=== PATIENT | female | born 1970 | race Caucasian/White ===

== ENCOUNTER 2025-08-28 11:41 | Emergency (ER) | payer OTHER ==
--- NOTE | 2025-08-28 13:52 | RAD REPORT ---
EXAM: Chest Single View HISTORY: 55 years Female CHEST PAIN COMPARISON: No prior exams FINDINGS: LUNGS/PLEURA: The lungs are clear. No pleural effusions or pneumothorax. No pulmonary edema. CARDIAC/MEDIASTINUM: The cardiac silhouette is within normal limits. UPPER ABDOMEN: No significant abnormality. BONES: No acute abnormality. LINES/TUBES/OTHER: N/A IMPRESSION: No evidence of acute cardiopulmonary disease.
[2025-08-28 14:09] LABS: Absolute Lymphocytes (CBC) 2.7 K/uL (0.7-4.9); Hematocrit 44.7 % (36.0-45.0); Hemoglobin 15.6 g/dL (12.0-15.0); MCH 32.6 pg (27.0-35.0); MCHC 34.8 g/dL (32.0-36.0); MCV 93.6 fL (80-100); MPV 7.3 fL (7.6-11.3); Nucleated RBC Absolute Count 0.0 (0-0); Nucleated Red Blood Cells % 0.1 % (0-0); RBC Red Blood Cell Count 4.77 M/uL (3.86-4.86); White Blood Count 8.20 thou/uL (4.3-10.9)
[2025-08-28 15:06] LABS: Anion Gap 10.3 mEq/L (5.0-15.0); BUN Blood Urea Nitrogen 13.0 mg/dL (7-18); Glucose Level 107.0 mg/dL (74-106); Potassium 3.3 mEq/L (3.5-5.1)
[2025-08-28 15:14] LABS: Troponin High Sensitivity 8287.7 pg/mL (<58.9)
[2025-08-28] MEDS ORDERED: ASPIRIN 81 MG CHEWABLE TABLET ONE (15:23)
[2025-08-28] MEDS ORDERED: HEPARIN 5000 UNIT/ML 1 ML VIAL ONE (15:48)
[2025-08-28] MEDS ORDERED: HEPARIN/D5W 25,000 UNIT/500 ML BAG IV ONE (15:49)
--- NOTE | 2025-08-28 15:55 | ER ---
Nurse's Notes [facility] Name: Nolan Arzate Age: 55 yrs Sex: Female : 1970 Arrival Date: 08/28/2025 Time: 11:41 Bed 2 Private MD: Diagnosis: Subsequent non-ST elevation (NSTEMI) myocardial infarction Presentation: 08/28 13:27 Chief complaint: Patient states: started having chest pain that was like something was me1 squeezing around her chest last night. Had a syncopal episode that lasted about 10 seconds last night. Chest pain has been persistent today. At this time pain is midsternal, dull, radiates to back and bilateral arms. Pain 4/10 now, 7/10 at worst. Coronavirus screen: Vaccine status: Patient reports being unvaccinated. Ebola Screen: No symptoms or risks identified at this time. Initial Sepsis Screen: Does the patient meet any 2 criteria? No. Patient's initial sepsis screen is negative. Does the patient have a suspected source of infection? No. Patient's initial sepsis screen is negative. Risk Assessment: Do you want to hurt yourself or someone else? Patient reports no desire to harm self or others. Onset of symptoms was August 27, 2025 at 16:00. 13:27 Method Of Arrival: Ambulatory hi1 13:27 Acuity: KARI 2 me1 Historical: - Allergies: 13:29 Wellbutrin; me1 - PMHx: 13:29 Hypertensive disorder; Hypercholesterolemia; me1 - PSHx: 13:29 Total abdominal hysterectomy; me1 - Immunization history:: Adult Immunizations up to date. - Infectious Disease History:: Denies. - Social history:: Smoking status: Patient denies any tobacco usage or history of. Screenin:20 [facility] ED Fall Risk Assessment (Adult) History of falling in the last 3 months, aa5 including since admission No falls in past 3 months (0 pts) Confusion or Disorientation No (0 pts) Intoxicated or Sedated No (0 pts) Impaired Gait No (0 pts) Mobility Assist Device Used No (0 pt) Altered Elimination No (0 pt) Score/Fall Risk Level 0 - 2 = Low Risk Oriented to surroundings, Maintained a safe environment, Educated pt \T\ family on fall prevention, incl call for assistance when getting out of bed, Assessed \T\ reinforced patient's understanding of fall precautions. Abuse screen: Denies threats or abuse. Nutritional screening: No deficits noted. Tuberculosis screening: No symptoms or risk factors identified. Assessment: 15:20 Reassessment: KATELYN Urena notified of critical lab value henrik 8287.7. ss 15:20 General: Appears comfortable, Behavior is calm, cooperative. Pain: Complains of pain in aa5 chest Pain radiates to around to back Pain currently is 3 out of 10 on a pain scale. Quality of pain is described as pressure, Pain began 1 day ago. Is continuous. Neuro: Level of Consciousness is awake, alert, obeys commands, Oriented to person, place, time, situation. Cardiovascular: Reports chest pain, syncopal episode yesterday, denies head injury, reports she was sitting down. Heart tones S1 S2 present Rhythm is sinus rhythm. Respiratory: Airway is patent Respiratory effort is even, unlabored, Respiratory pattern is regular, symmetrical. GI: Abdomen is round non-distended, Bowel sounds present X 4 quads. Abd is soft and non tender X 4 quads. Patient currently denies nausea, vomiting. : No signs and/or symptoms were reported regarding the genitourinary system. EENT: No signs and/or symptoms were reported regarding the EENT system. Derm: Skin is pink, warm \T\ dry. Musculoskeletal: Range of motion: intact in all extremities. 15:22 Reassessment: Patient is alert, oriented x 3, equal unlabored respirations, skin aa5 warm/dry/pink. General: Appears uncomfortable, Behavior is crying, Pt reports she is scared, reassured pt verbally, pt's at bedside reassuring pt as well. . 15:22 Reassessment: Provider at bedside speaking to pt and pt's . . aa5 16:00 Reassessment: Patient is alert, oriented x 3, equal unlabored respirations, skin aa5 warm/dry/pink. 16:40 Reassessment: Patient is alert, oriented x 3, equal unlabored respirations, skin aa5 warm/dry/pink. Cardiovascular: Rhythm is sinus rhythm. 17:25 Reassessment: Patient is alert, oriented x 3, equal unlabored respirations, skin aa5 warm/dry/pink. Vital Signs: 13:27 BP 129 / 99; Pulse 78; Resp 18; Temp 98.2; Pulse Ox 100% ; Weight 92.53 kg; Height 5 me1 ft. 3 in. ; Pain 4/10; 15:22 BP 153 / 71; Pulse 73; Resp 19 S; Pulse Ox 100% on R/A; aa5 15:59 BP 125 / 69; Pulse 70; Resp 18 S; Pulse Ox 99% on R/A; aa5 16:40 BP 131 / 79; Pulse 66; Resp 16; Pulse Ox 67% ; ap3 17:05 BP 128 / 72; Pulse 68; Resp 18 S; Pulse Ox 99% on R/A; aa5 13:27 Body Mass Index 36.14 (92.53 kg, 160.02 cm) me1 13:27 Pain Scale: Adult me1 ED Course: 11:44 Patient arrived in ED. al6 11:54 Romel Paz FNP-C [facility]. dr5 11:54 Frida Darling MD is Attending Physician. dr5 13:29 Triage completed. me1 13:29 Arm band placed on Patient placed in waiting room. me1 13:42 XRAY Chest (1 view) In Process Unspecified. EDMS 14:05 EKG done, by certified surgical technician. reviewed by Romel WRIGHT. ts3 14:05 Initial lab(s) drawn, by sleep lab technologist, sent to lab. Inserted saline lock: 20 gauge in left ts3 antecubital area, using aseptic technique. Blood collected. Flushed with 10 mL NS. 14:30 IV discontinued, intact, bleeding controlled, No redness/swelling at site. Pressure bc6 dressing applied, 20 \T\LAC. 14:40 Initial lab(s) drawn, by hi, sent to lab. Inserted saline lock: 20 gauge in right bc6 antecubital area, using aseptic technique. Blood collected. Flushed with 10 mL NS. 15:17 Pattie Piña, RN is Primary Nurse. aa5 15:20 Patient has correct armband on for positive identification. Placed in gown. Bed in low aa5 position. Call light in reach. Side rails up X2. Client placed on continuous cardiac and pulse oximetry monitoring. NIBP monitoring applied. security monitor on. Pulse ox on. NIBP on. 15:30 Inserted saline lock: 20 gauge in left wrist, using aseptic technique. Flushed with 10 aa5 mL NS. 15:51 1551 called [facility] for transfer talked to Ila 1556 Dr. Kelly Alvarado accepted pt 1600 sp Admin approval by Ila Hernandez RN TC to room 2411 report [phone] fax [phone]. pt's came to desk and requested pt be transferred to [facility]. 16:01 No provider procedures requiring assistance completed. Patient maintains SpO2 aa5 saturation greater than 95% on room air. 16:08 1608 called [facility] for transfer talked to Kate Perez RN TC 1618 Dr. Addis Reich accept pt sp 1618 Admin approval Kate SCHRADER to [facility] to the ER DEPT report [phone]. called [facility] for transfer talked to Michelle. 1650 called [facility] to cancel transfer talked to Ila. 17:25 Patient transferred, IV remains in place. aa5 Administered Medications: 15:40 Drug: Aspirin PO Chewable Tablet 324 mg PO once; 81 mg tablets x 4 Route: PO; ss 16:15 Follow up: Response: No adverse reaction aa5 15:55 Drug: Heparin (MS-Bolus No thrombolytic) - HEParin IVP 60 units/kg IVP once; Max 5000 aa5 units {Co-Signature: ap3 (Maine Mir RN).} Route: IVP; Site: right antecubital; 16:15 Follow up: Response: No adverse reaction aa5 15:56 Drug: Heparin (MS Drip) 12 units/kg/[place] - ([place] [address] units, D5W IV 500 ml) IV at aa5 calculated rate Per protocol; Max initial rate 1000 units/hr {Co-Signature: ap3 (Maine Mir RN).} Route: IV; Rate: calculated rate; Site: right antecubital; 17:25 Follow up: IV Status: Infusion continued upon transfer aa5 Medication: 18:19 VIS not applicable for this client. aa5 Outcome: 15:54 ER care complete, transfer ordered by MD. dr5 17:25 Transferred by ground EMS Transfer form completed. X-rays sent w/ patient. Note: [facility] aa5 [facility], report given to Valerie nurse at [facility]. Report given to [facility]. 17:25 Condition: stable 17:25 Instructed on the need for transfer, Demonstrated understanding of instructions, 17:27 Patient left the ED. aa5 Signatures: Dispatcher [employer] EDMS Ondina Mejia Audri, RN RN aa5 Nini Carvajal RN RN ss Maine Mir RN RN ap3 Krys Winchester 6 Courtney Hinkle RN RN me1 Romel Paz, PAINT SPRAYING MACHINE OPERATOR HELPER-C PAINT SPRAYING MACHINE OPERATOR HELPER-Cdr5 Roslyn Nolasco al6 Patricia Blum 3 Maine Mir RN ap3 Corrections: (The following items were deleted from the chart) 16:02 16:02 Heparin (MS-Bolus No thrombolytic) - HEParin IVP 5000 units IVP in right aa5 antecubital aa5 16:04 13:20 Reassessment: KATELYN Urena notified of critical lab value torponin 8287.7 [facility]
--- NOTE | 2025-08-28 15:55 | EDPHYS ---
Physician Documentation [facility] Name: Nolan Arzate Age: 55 yrs Sex: Female : 1970 Arrival Date: 08/28/2025 Time: 11:41 Bed 2 Private MD: ED Physician Frida Darling HPI: 08/28 15:35 This 55 yrs old Female presents to ER via Ambulatory with complaints of Chest dr5 Pain. 15:35 Onset: The symptoms/episode began/occurred yesterday. Patient is a 55-year-old female dr5 with history of hypertension hyperlipidemia coming in with chest pain that started yesterday around 1600. Patient states that she thought it was indigestion. Patient did take 324 of aspirin yesterday night prior to going to bed. Patient states that she has had continued chest pain throughout the day. Patient reports history of hysterectomy with no other surgeries. Patient denies smoking. Patient states that she did have a syncopal episode yesterday and thought it was from dehydration.. Historical: - Allergies: 13:29 Wellbutrin; me1 - PMHx: 13:29 Hypertensive disorder; Hypercholesterolemia; me1 - PSHx: 13:29 Total abdominal hysterectomy; me1 - Immunization history:: Adult Immunizations up to date. - Infectious Disease History:: Denies. - Social history:: Smoking status: Patient denies any tobacco usage or history of. ROS: 15:35 Constitutional: as per hpi dr5 Exam: 15:35 Constitutional: This is a well developed, well nourished patient who is awake, alert, dr5 and in no acute distress. Head/Face: Normocephalic, atraumatic. Eyes: Pupils equal round and reactive to light, extra-ocular motions intact. Lids and lashes normal. Conjunctiva and sclera are non-icteric and not injected. Cornea within normal limits. Periorbital areas with no swelling, redness, or edema. Neck: Trachea midline, no thyromegaly or masses palpated, and no cervical lymphadenopathy. Supple, full range of motion without nuchal rigidity, or vertebral point tenderness. No Meningismus. Chest/axilla: Normal chest wall appearance and motion. Nontender with no deformity. No lesions are appreciated. Cardiovascular: Regular rate and rhythm with a normal S1 and S2. Normal PMI, no JVD. No pulse deficits. Respiratory: Lungs have equal breath sounds bilaterally, clear to auscultation. No rales, rhonchi or wheezes noted. No increased work of breathing, no retractions or nasal flaring. Back: No spinal tenderness. No costovertebral tenderness. Full range of motion. Skin: Warm, dry with normal turgor. Normal color with no rashes, no lesions, and no evidence of cellulitis. MS/ Extremity: Pulses equal, no cyanosis. Neurovascular intact. Full, normal range of motion. Neuro: Awake and alert, GCS 15, oriented to person, place, time, and situation. Cranial nerves II-XII grossly intact. Motor strength 5/5 in all extremities. Sensory grossly intact. Cerebellar exam normal. Normal gait. Vital Signs: 13:27 BP 129 / 99; Pulse 78; Resp 18; Temp 98.2; Pulse Ox 100% ; Weight 92.53 kg; Height 5 me1 ft. 3 in. ; Pain 4/10; 15:22 BP 153 / 71; Pulse 73; Resp 19 S; Pulse Ox 100% on R/A; aa5 15:59 BP 125 / 69; Pulse 70; Resp 18 S; Pulse Ox 99% on R/A; aa5 16:40 BP 131 / 79; Pulse 66; Resp 16; Pulse Ox 67% ; ap3 17:05 BP 128 / 72; Pulse 68; Resp 18 S; Pulse Ox 99% on R/A; aa5 13:27 Body Mass Index 36.14 (92.53 kg, 160.02 cm) me1 13:27 Pain Scale: Adult me1 MDM: 11:54 Medical Screening Exam initiated dr5 15:35 Differential diagnosis: STEMI, NSTEMI, pneumonia, costochondritis, GERD. Data reviewed: dr5 vital signs, nurses notes, lab test result(s), cardiac enzymes, troponin i, CBC, white blood cell count, hemoglobin, hematocrit, platelets, electrolytes, sodium, potassium, chloride, serum bicarbonate, BUN, creatinine, serum glucose, EKG, radiologic studies. Consideration of Admission/Observation Patient was admitted/placed on observation. Management of patient was discussed with the following:. 15:45 Management of patient was discussed with the following: Chief Learning Officer: Dr. Greenberg who dr5 recommended urgent catheter for NSTEMI.. 16:00 ED course: Acceptance to [facility] by Dr. Gutierrez.. dr5 16:05 ED course: comes up to me and requesting [facility] and not go to [address] 17:13 Management of patient was discussed with the following: Hospitalist: Dr. Reich. I dr5 considered the following discharge prescriptions or medication management in the emergency department I discussed and recommended Over The Counter medications. Historians other than the Patient: Spouse/Significant Other: . Care significantly affected by the following Social Determinants of Health: Poor access to healthcare and/or lack of insurance, Poor access to transportation, Problems related to employment. Counseling: I had a detailed discussion with the patient and/or guardian regarding the historical points, exam findings, and any diagnostic results supporting the discharge/admit diagnosis, the presence of at least one elevated blood pressure reading (>120/80) during this emergency department visit, lab results, radiology results, the need to transfer to another facility, for higher level of care, [facility] does not immediately have the required specialist, Urgent Construction Stonemason - Cardiology. ED course: Will transfer patient to [facility] per patient request. Heparin started. Patient stable for transfer.. 08/28 11:55 Order name: Basic Metabolic Panel; Complete Time: 15:18 [facility] 08/28 11:55 Order name: CBC with Diff; Complete Time: 14:12 [facility] 08/28 11:55 Order name: Troponin HS; Complete Time: 15:18 [facility] 08/28 15:31 Order name: PT-INR; Complete Time: 16:03 [facility] 08/28 15:31 Order name: Ptt, Activated; Complete Time: 16:03 [facility] 08/28 11:55 Order name: XRAY Chest (1 view); Complete Time: 13:57 08/28 11:55 Order name: EKG; Complete Time: 11:56 [facility] 08/28 11:55 Order name: Cardiac monitoring; Complete Time: 15:18 [facility] 08/28 11:55 Order name: EKG - Nurse/Tech; Complete Time: 14:05 [facility] 08/28 11:55 Order name: IV Saline Lock; Complete Time: 14: [facility] 08/28 11:55 Order name: Labs collected and sent; Complete Time: 14:05 [facility] 08/28 11:55 Order name: O2 Per Protocol; Complete Time: 15:18 [facility] 08/28 11:55 Order name: O2 Sat Monitoring; Complete Time: 15:18 dr5 08/28 14:13 Order name: Labs - recollect needed: green top only; Complete Time: 14:39 ss EC:56 Rate is 66 beats/min. Rhythm is regular. QRS Norman is Normal. MO interval is normal at dr5 143 msec. QRS interval is normal at 86 msec. QT interval is normal at 374 msec. Clinical impression: No evidence of ischemia. 15:43 Rate is 72 beats/min. Rhythm is regular. QRS Norman is Normal. MO interval is normal at dr5 156 msec. QRS interval is normal at 84 msec. QT interval is normal at 386 msec. Clinical impression: Normal ECG and No evidence of ischemia. Administered Medications: 15:40 Drug: Aspirin PO Chewable Tablet 324 mg PO once; 81 mg tablets x 4 Route: PO; ss 16:15 Follow up: Response: No adverse reaction aa5 15:55 Drug: Heparin (NC-Bolus No thrombolytic) - HEParin IVP 60 units/kg IVP once; Max 5000 aa5 units {Co-Signature: hossein (Maine Mir RN).} Route: IVP; Site: right antecubital; 16:15 Follow up: Response: No adverse reaction aa5 15:56 Drug: Heparin (NC Drip) 12 units/kg/[place] ([place] [address] units, D5W IV 500 ml) IV at aa5 calculated rate Per protocol; Max initial rate 1000 units/hr {Co-Signature: ap3 (Maine Mir RN).} Route: IV; Rate: calculated rate; Site: right antecubital; 17:25 Follow up: IV Status: Infusion continued upon transfer aa5 Disposition Summary: 08/28/25 15:54 Transfer Ordered Notes: Reason: Higher level of care dr5 Condition: Serious dr5 Problem: new dr5 Symptoms: have worsened dr5 Transfer Location: [facility] System(08/28/25 17:13) dr5 Accepting Physician: Dr. Addis Reich(08/28/25 17:27) aa5 Diagnosis - Subsequent non-ST elevation (NSTEMI) myocardial infarction dr5 Forms: - Medication Reconciliation Form dr5 - SBAR form dr5 Critical care time excluding procedures: 17:16 Critical care time: Bedside Care: 25 minutes, Consultation: 5 minutes, Family dr5 Intervention: 5 minutes. Total time: 35 minutes Signatures: Dispatcher [employer] Pattie Live RN RN aa5 Nini Carvajal RN RN ss Courtney Hinkle RN RN me1 Romel Paz, ADRIANA WELDING MACHINE OPERATOR ELECTRO GAS-5 Maine Mir RN ap3 Corrections: (The following items were deleted from the chart) 16:03 15:[address] Cardiology dr5 dr5 17:13 15:54 [facility] dr5 dr5 17:13 16:03 Dr. Kelly Gutierrez dr5 dr5 17:27 17:13 Dr. Addis Reich dr5 aa5
[2025-08-28 16:03] LABS: PT Prothrombin Time 13.1 SECONDS (10-13.0); PTT, Activated Partial Thromb 27.8 SECONDS (27.2-37.4); Protime INR 1.16
[2025-08-28 21:14] VITALS: TEMP 98.2
[2025-08-28 21:18] VITALS: BP 131/79; O2SAT 67
== END 2025-08-28 17:27 | disposition short-term general hospital (02) ==
LOC: ER 11:41
DX: I22.2 Subsequent non-ST elevation (NSTEMI) myocardial infarction (principal); I21.9 Acute myocardial infarction, unspecified; I10 Essential (primary) hypertension
CPT/HCPCS: 96365; 93005 ×2; 85025; 80048; 36415; 85610; 85730; 84484; 71045; 99285; J1644